=== PATIENT | female | born 1985 | race Hispanic/Latino ===

== ENCOUNTER → 2020-02-08 | Day surgery (SDC) | payer OTHER ==
[2020-02-05 15:02] LABS: BASOPHILS # (AUTO) 0.1 (0.0-0.1); BASOPHILS % 0.7 % (0.0-1.0); EOSINOPHILS # (AUTO) 0.3 (0.0-0.4); HEMATOCRIT 42.7 % (34.2-44.1); HEMOGLOBIN 14.7 g/dL (12.0-16.0); LYMPHOCYTES # (AUTO) 2.6 (1.0-3.2); LYMPHOCYTES % 30.5 % (18.0-39.1); MEAN CORPUSCULAR HEMOGLOBIN 30.8 pg (28-32); MEAN CORPUSCULAR HGB CONC 34.4 g/dL (31-35); MEAN CORPUSCULAR VOLUME 89.5 fL (81-99); MONOCYTES # (AUTO) 0.9 (0.2-0.8); MONOCYTES % 10.1 % (4.4-11.3); NEUTROPHILS # (AUTO) 4.8 (2.1-6.9); NEUTROPHILS % 55.4 % (38.7-80.0); PLATELET COUNT 312 x10e3/uL (140-360); RED BLOOD COUNT 4.77 x10e6/uL (3.6-5.1); RED CELL DISTRIBUTION WIDTH 12.3 % (11.7-14.4)
[2020-02-05 15:19] LABS: ANION GAP 14.4 mmol/L (8-16); BLOOD UREA NITROGEN 8 mg/dL (7-26); BUN/CREATININE RATIO 10 (6-25); CARBON DIOXIDE 27 mmol/L (22-29); CHLORIDE 104 mmol/L (98-107); CREATININE, SERUM 0.83 mg/dL (0.57-1.11); EST GLOMERULAR FILTRATION RATE > 60 ML/MIN (60-); GLUCOSE 85 mg/dL (74-118); POTASSIUM 4.4 mmol/L (3.5-5.1); SODIUM 141 mmol/L (136-145)
[~2020-02-08] MED LIST: FENTANYL CITRATE/PF 100MCG/2 ML INJ ONE; HYDROCHLOROTHIA25 MG PO; KETOROLAC TROMETHAMINE 30 MG/ML VIAL ONE; LIDOCAINE HCL 2% LOCAL INJ 5 ML SDV VIAL INJ ONE; METOPROLOL SUCC50 MG PO; MIDAZOLAM HCL 2 MG/2 ML VIAL ONE; ONDANSETRON HCL INJ 2MG/ML 2ML 2 MG/ML VIAL ONE; PROPOFOL IV EMULSION 10 MG/ML 20 ML VIAL ONE; SEVOFLURANE INHAL SOLN 250 ML PEN BTL ONE
[2020-02-08 15:50] VITALS: BP 116/79
--- NOTE | 2020-02-08 21:37 | Operative Report ---
DATE OF PROCEDURE: 02/08/2020 SURGEON: Lesa Danielle MD OPERATIVE REPORT AND DISCHARGE SUMMARY NAME OF PROCEDURE: Dilation and curettage, polypectomy with TruClear, hysteroscopy. PREOPERATIVE DIAGNOSES: 1. Abnormal uterine bleeding, heavy menstrual bleeding. 2. Endometrial polyp. POSTOPERATIVE DIAGNOSES: 1. Abnormal uterine bleeding, heavy menstrual bleeding. 2. Endometrial polyp. INDICATIONS FOR THE PROCEDURE: The patient was a 34-year-old patient who presented with abnormal uterine bleeding given her risk factors and polyp, seen on ultrasound. Recommendation made for polypectomy and D and C in the operating room. The patient agreed to proceed with the proposed procedure after being counseled on the risks, benefits and alternatives. ESTIMATED BLOOD LOSS: 10 mL. URINE OUTPUT: Unmeasured. COMPLICATIONS: None. SPECIMENS: Polyp. DESCRIPTION OF PROCEDURE: The patient was taken to the operating room, where she was placed under general anesthesia. She was placed in dorsal lithotomy position with legs in candy cane stirrups. The patient was prepped and draped in the usual sterile fashion. Time-out was confirmed to confirm correct patient, site and procedure. The patient voided immediately prior to procedure. A right-angle retractor and bottom portion of the [facility] speculum were used to visualize the cervix. Anterior loop of the cervix was grasped with a single-tooth tenaculum. The cervix was serially dilated to accommodate 8.0 hysteroscope. Hysteroscope was placed in the cervix and advanced gently. There was a large polyp noted that was filling the uterine cavity. Ostia were unable to be visualized secondary to the polyp. TruClear device, Dense Tissue Shaver Plus, was used to resect the polyp. Hysteroscope was then removed after visualization of bilateral ostia. There was noted to be no injury to the uterus. Sharp curettage was then gently performed. Instruments were then removed and there was noted be excellent hemostasis. All lap, sponge and instrument counts were correct x2 at the end of the procedure. The patient was taken to the recovery room in stable condition. Lesa Danielle MD JPO/MODL /[id number]
--- NOTE | 2020-02-09 02:53 | Discharge Summary ---
HOSPITAL COURSE: The patient was presented on February 07 for scheduled procedure. She underwent an uncomplicated D and C, hysteroscopy, polypectomy and was discharged home the same day after meeting discharge criteria. She was counseled on discharge precaution and advised to follow up in 2 weeks. She was advised to follow up if she has heavy bleeding, fever, severe pain, nausea, vomiting, shortness of breath, and chest pain. She was advised to continue her home medications and was prescribed Motrin 600 mg every 6 hours for pain. Lesa Danielle MD JPO/MODL /[id number]
== END | disposition home or self-care (01) ==
LOC: OR 11:58
PROVIDERS: ATTEND Obstetrics & Gynecology
DX: N84.0 Polyp of corpus uteri (principal); E28.2 Polycystic ovarian syndrome; I10 Essential (primary) hypertension; Z01.810 Encounter for preprocedural cardiovascular examination; Z01.812 Encounter for preprocedural laboratory examination; Z11.59 Encounter for screening for other viral diseases; Z68.41 Body mass index [BMI] 40.0-44.9, adult
CPT/HCPCS: 36415; 58558; 80048; 84702; 85025; 87635; 88305; 93005; J1885; J2001; J2250; J2405; J2704; J3010